=== PATIENT | female | born 2000 | race Two or more races ===

== ENCOUNTER 2022-05-11 08:42 | Emergency (ER) | payer OTHER ==
[~2022-05-11] VITALS: Ht 157.5 cm; Wt 55.8 kg
== END 2022-05-11 12:58 | disposition home or self-care (01) ==
LOC: ER 08:42
DX: O99.891 Other specified diseases and conditions complicating pregnancy (principal); Z3A.19 19 weeks gestation of pregnancy; K05.10 Chronic gingivitis, plaque induced

== ENCOUNTER 2022-06-05 12:54 | Outpatient (CLI) | payer OTHER | END 2022-06-05 15:00 | disposition home or self-care (01) | LOC: PRENATAL 12:54 | PROVIDERS: ATTEND Obstetrics & Gynecology Maternal & Fetal Medicine | DX: O35.9XX0 Maternal care for (suspected) fetal abnormality and damage, unspecified, not applicable or unspecified (principal); Z3A.23 23 weeks gestation of pregnancy ==

== ENCOUNTER 2022-09-10 21:48 | Outpatient (CLI) | payer OTHER ==
[2022-09-10] MEDS ORDERED: PRENATAL + DHA1 EAC1 (22:05)
[2022-09-11] MEDS ORDERED: CEFADROXIL500 MG PO (07:01)
== END 2022-09-11 07:57 | disposition home or self-care (01) ==
LOC: OBS/DEL 21:48
PROVIDERS: ATTEND Obstetrics & Gynecology
DX: O23.43 Unspecified infection of urinary tract in pregnancy, third trimester (principal); N39.0 Urinary tract infection, site not specified; Z3A.37 37 weeks gestation of pregnancy

== ENCOUNTER 2022-09-21 13:00 | Inpatient (IN) | payer OTHER ==
[~2022-09-21] VITALS: Ht 157.5 cm; Wt 63.5 kg
[~2022-09-21 13:00] MED LIST: CEFADROXIL500 MG PO; PRENATAL + DHA1 EAC1
== END 2022-09-30 14:35 | disposition home or self-care (01) | DRG 788 ==
LOC: LDR 09-27 09:53 → OB/GYN 09-27 09:53
PROVIDERS: ADMIT Obstetrics & Gynecology; ATTEND Obstetrics & Gynecology
PROC: 4A1HXCZ Monitoring of Products of Conception, Cardiac Rate, External Approach (ICD-10-PCS; 2022-09-27)
PROC: 10D00Z1 Extraction of Products of Conception, Low, Open Approach (ICD-10-PCS; principal; 2022-09-28)
DX: O99.824 Streptococcus B carrier state complicating childbirth (principal); Z3A.39 39 weeks gestation of pregnancy; Z37.0 Single live birth; Z20.822 Contact with and (suspected) exposure to COVID-19

== ENCOUNTER 2023-02-16 08:03 | Emergency (ER) | payer OTHER ==
[~2023-02-16] VITALS: Ht 157.5 cm; Wt 55.8 kg
== END 2023-02-16 11:37 | disposition home or self-care (01) ==
LOC: ER 08:03
DX: A05.9 Bacterial foodborne intoxication, unspecified (principal); N39.0 Urinary tract infection, site not specified